=== PATIENT | male | born 1960 | race Caucasian/White ===

== ENCOUNTER 2023-10-06 11:44 | Outpatient (CLI) | payer MEDICARE, MEDICAID, SELFPAY ==
[2023-10-06 11:48] LABS: Abs Immature Grans 0.03 10^3/uL (0.0-0.06); Absolute Basophil Count 0.11 10^3/uL (0.0-0.2); Absolute Eosinophil Count 0.47 10^3/uL (0.0-0.7); Absolute Neutrophil Count 6.57 10^3/uL (1.2-6.7); Eosinophils % 4.4 %; HCT 49.8 % (40.0-50.0); HGB 16.1 g/dL (13.5-17.5); Immature Grans % 0.3 %; Lymphocytes % 23.6 %; MCH 29.2 pg (27.0-33.0); MCHC 32.3 % (32.0-36.0); MCV 90 fL (80-95); MPV 10.5 fL (8.0-11.0); Monocytes % 8.5 %; Neutrophils % 62.2 %; Platelet Count 383 10^3/uL (130-400); RBC 5.51 10^6/uL (4.36-5.78); RDW-SD 46.9 fL; WBC 10.58 10^3/uL (4.4-10.8)
[2023-10-06 12:13] LABS: ALT 164 U/L (16-63); AST 50 U/L (15-37); Albumin 3.5 g/dL (3.4-5.0); Alkaline Phosphatase 70 U/L (46-116); Anion Gap 6.2 mmol/L (3-11); BUN 10 mg/dL (7-18); Bilirubin, Total 0.32 mg/dL (0.2-1.0); CO2 29.8 mmol/L (21.0-32.0); CREATININE 0.9 mg/dL (0.70-1.30); Calcium 9.3 mg/dL (8.5-10.1); Chloride 104 mmol/L (98-107); Estimated GFR 95.37 (mL/min/1.73m2); FREE T4 0.92 ng/dL (0.76-1.46); Glucose 101 mg/dL (74-106); LDH 164 U/L (85-227); Potassium 4.3 mmol/L (3.5-5.1); Sodium 140 mmol/L (136-145); TSH 1.71 uIU/Ml (0.36-3.74); Total Protein 8.6 g/dL (6.4-8.2)
== END 2023-10-06 11:45 | disposition home or self-care (01) ==
PROVIDERS: Visit Provider Nurse Practitioner
DX: C43.62 Malignant melanoma of left upper limb, including shoulder (principal); Z79.899 Other long term (current) drug therapy
CPT/HCPCS: 36415; 80053; 83615; 84439; 84443; 85025

== ENCOUNTER 2023-10-16 09:19 | Outpatient (CLI) | payer MEDICARE, MEDICAID, SELFPAY ==
[2023-10-16 10:37] LABS: ALT 192 U/L (16-63); AST 70 U/L (15-37); Albumin 3.6 g/dL (3.4-5.0); Alkaline Phosphatase 69 U/L (46-116); Anion Gap 6.1 mmol/L (3-11); BUN 12 mg/dL (7-18); Bilirubin, Total 0.43 mg/dL (0.2-1.0); CO2 29.9 mmol/L (21.0-32.0); CREATININE 1.1 mg/dL (0.70-1.30); Calcium 9.5 mg/dL (8.5-10.1); Chloride 102 mmol/L (98-107); Estimated GFR 74.96 (mL/min/1.73m2); Glucose 168 mg/dL (74-106); Potassium 4.1 mmol/L (3.5-5.1); Sodium 138 mmol/L (136-145); Total Protein 8.5 g/dL (6.4-8.2)
== END 2023-10-16 09:20 | disposition home or self-care (01) ==
LOC: LBO 09:20
PROVIDERS: Visit Provider Nurse Practitioner
DX: C43.62 Malignant melanoma of left upper limb, including shoulder (principal)
CPT/HCPCS: 36415; 80053

== ENCOUNTER 2023-10-29 16:05 | Outpatient (CLI) | payer MEDICARE, MEDICAID, SELFPAY ==
[2023-10-29 13:34] LABS: PTT Activated 23.3 sec (23.6-32.8)
[2023-10-29 14:05] LABS: ALT 205 U/L (16-63); AST 55 U/L (15-37); Albumin 3.6 g/dL (3.4-5.0); Alkaline Phosphatase 72 U/L (46-116); Anion Gap 7.1 mmol/L (3-11); BUN 19 mg/dL (7-18); Bilirubin, Total 0.29 mg/dL (0.2-1.0); CO2 30.9 mmol/L (21.0-32.0); CREATININE 1.3 mg/dL (0.70-1.30); Calcium 9.5 mg/dL (8.5-10.1); Chloride 97 mmol/L (98-107); Estimated GFR 61.35 (mL/min/1.73m2); Glucose 342 mg/dL (74-106); Potassium 4.7 mmol/L (3.5-5.1); Sodium 135 mmol/L (136-145); Total Protein 7.8 g/dL (6.4-8.2)
[2023-10-31 15:12] LABS: Smooth Muscle Ab Screen Negative (Negative)
== END 2023-10-29 16:06 | disposition home or self-care (01) ==
LOC: LBO 16:07
PROVIDERS: Visit Provider Nurse Practitioner
DX: R74.01 Elevation of levels of liver transaminase levels (principal); Z79.899 Other long term (current) drug therapy; R91.1 Solitary pulmonary nodule; C43.62 Malignant melanoma of left upper limb, including shoulder; R79.89 Other specified abnormal findings of blood chemistry; Z86.73 Personal history of transient ischemic attack (TIA), and cerebral infarction without residual deficits; I63.9 Cerebral infarction, unspecified
CPT/HCPCS: 36415; 80053; 85610; 85730; 86255